=== PATIENT | female | born 1950 | race Caucasian/White ===

== ENCOUNTER 2024-02-12 14:28 | Outpatient (OUT) | payer MEDICARE, SELFPAY ==
--- NOTE | 2024-02-12 | XR_ITS ---
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 No bone fracture dislocation. Stable degenerative changes. SOFT TISSUES:No significant soft tissue swelling. EFFUSION:None visible. OTHER: Negative. XR/XR ankle LT min 3V IMPRESSION: 1. Stable surgical changes without evidence of hardware failure or change in alignment. Electronically authenticated by: DERREK TATUM Date: 02/14/2024 09:31
== END 2024-02-12 14:29 | disposition home or self-care (01) ==
PROVIDERS: Visit Provider Podiatrist Foot & Ankle Surgery
DX: M25.572 Pain in left ankle and joints of left foot (principal); Z96.662 Presence of left artificial ankle joint
CPT/HCPCS: 73610